=== PATIENT | male | born 1955 | race Caucasian/White ===

== ENCOUNTER 2016-10-13 11:12 | Emergency (ER) | payer OTHER, BC ==
[~2016-10-13] VITALS: Ht 167.6 cm; Wt 90.8 kg
[2016-10-13 12:46] LABS: MCH 31.3 PG (29.0-34.0); MCHC 35.1 G/DL (30.0-36.0); MEAN PLAT.VOLUME 10.8 uM^3 (9.0-12.4); PLATELET COUNT 254 K/uL (156-360); RBC DIS.WIDTH-CV 12.2 % (11.8-14.6); RED BLOOD COUNT 4.38 M/uL (4.00-5.50); WHITE BLOOD COUNT 9.3 K/uL (4.1-10.2)
[2016-10-13 13:06] LABS: CHLORIDE 103 mEq/L (99-109); POTASSIUM 3.6 mEq/L (3.7-5.4); SODIUM 138 mEq/L (136-147)
[2016-10-13 13:09] LABS: GLUCOSE 110 mg/dL (70-99)
[2016-10-13 13:10] LABS: ANION GAP 12 MEQ/L (2-14)
[2016-10-13 13:11] LABS: TOTAL BILIRUBIN 0.8 mg/dL (0.0-1.0)
[2016-10-13 13:12] LABS: ALKALINE PHOSPHATASE 55 IU/L (3-129); GFR ESTIMATE (CALCULATED) > 59 mL/min/
[2016-10-13 13:13] LABS: UREA NITROGEN (BUN) 14 mg/dL (9-23)
[2016-10-13] MEDS ORDERED: ZESTORETIC 20-1 EAC1 PO (14:29)
[2016-10-13 17:30] VITALS: BP 117/73
== END 2016-10-13 17:30 | disposition short-term general hospital (02) ==
LOC: EME 11:12 → EDBD 11:12 → EME 17:30
PROVIDERS: Emergency Medicine
DX: S72.001A Fracture of unspecified part of neck of right femur, initial encounter for closed fracture (principal); W17.89XA Other fall from one level to another, initial encounter; M81.0 Age-related osteoporosis without current pathological fracture; I10 Essential (primary) hypertension; Z87.891 Personal history of nicotine dependence; Z88.6 Allergy status to analgesic agent
CPT/HCPCS: 73502; 73552; 80053; 85027; J1170; J1200; J2405; J2765; J3010